=== PATIENT | female | born 1995 | race Caucasian/White ===

== ENCOUNTER 2019-01-08 11:16 | Emergency (ER) | payer SELFPAY ==
[2019-01-08 11:28] VITALS: O2SAT 99
[2019-01-08] MEDS: traMADol HCL 50 MG TAB PO ONE (12:14)
--- NOTE | 2019-01-08 12:17 | RAD ---
EXAM DESCRIPTION: Forearm,Left CLINICAL HISTORY: 23 years Female, pipe fell on the pt. COMPARISON: None available. FINDINGS: The visualized bones are well-mineralized.No acute fracture or dislocation. The soft tissues appear grossly unremarkable. IMPRESSION: Normal radiographs of the left forearm. Electronically signed by: Fawn Lind MD 01/08/2019 12:15 PM CDT
--- NOTE | 2019-01-08 12:17 | RAD ---
EXAM DESCRIPTION: Humerus,Left CLINICAL HISTORY: 23 years Female, pipe fell on the pt. TECHNIQUE: 2 views of the left humerus were performed. FINDINGS: The visualized bones are well-mineralized.No acute fracture or dislocation. The soft tissues appear grossly unremarkable. IMPRESSION: Normal radiographs of the left humerus. Humerus Electronically signed by: Fawn Lind MD 01/08/2019 12:16 PM CDT
--- NOTE | 2019-01-08 12:17 | RAD ---
EXAM DESCRIPTION: Elbow,Left 2 Views CLINICAL HISTORY: 23 years Female, pipe fell on the pt. COMPARISON: None available. FINDINGS: The visualized bones are well-mineralized.No acute fracture or dislocation. The soft tissues appear grossly unremarkable. IMPRESSION: Normal radiographs of the left elbow. Electronically signed by: Fawn Lind MD 01/08/2019 12:15 PM CDT
--- NOTE | 2019-01-08 12:18 | RAD ---
EXAM DESCRIPTION: Shoulder,Left 2 or More Views CLINICAL HISTORY: 23 years Female, pipe fell on the pt. COMPARISON: None available. FINDINGS: The visualized bones are well-mineralized.No acute fracture or dislocation. The soft tissues appear grossly unremarkable. IMPRESSION: Normal radiographs of the left shoulder. Electronically signed by: Fawn Lind MD 01/08/2019 12:16 PM CDT
--- NOTE | 2019-01-08 12:18 | RAD ---
EXAM DESCRIPTION: Wrist,Left 2 Views CLINICAL HISTORY: 23 years Female, pipe fell on the pt. COMPARISON: None available. FINDINGS: The visualized bones are well-mineralized.No acute fracture or dislocation. The soft tissues appear grossly unremarkable. IMPRESSION: Normal radiographs of the left wrist. Electronically signed by: Fawn Lind MD 01/08/2019 12:16 PM CDT
--- NOTE | 2019-01-08 12:37 | ED.PDOC ---
History of Present Illness - General Chief Complaint: Upper Extremity Injury Stated Complaint: left arm pain Time Seen by Provider: 01/08/19 11:20 Source: patient Exam Limitations: no limitations - History of Present Illness Initial Comments: the patient is a 23-year-old female presenting to emergency room secondary to pain in her left upper extremity after several types fell off of the trailer onto her. She is having pain extending down the anterior left shoulder around to the posterior triceps area and then down the forearm to the wrist. There is no gross deformity. There is no laceration. She does have tenderness to palpation in these areas. Passive range of motion appears to be preserved. She appears to be neurovascularly intact. Range of motion strength of the hand appears to be preserved. No other injury. Timing/Duration: momentarily Severity: moderate Improving Factors: immobilization Worsening Factors: movement Associated Symptoms: denies symptoms Allergies/Adverse Reactions: Allergies NO KNOWN ALLERGY Allergy (Verified 01/08/19 11:28) Home Medications: Ambulatory Orders Niacin BID 01/08/19 Review of Systems - Review of Systems Constitutional: States: no symptoms reported EENTM: States: no symptoms reported Respiratory: States: no symptoms reported Cardiology: States: no symptoms reported Gastrointestinal/Abdominal: States: no symptoms reported Genitourinary: States: no symptoms reported Musculoskeletal: States: see HPI Skin: States: no symptoms reported Neurological: States: no symptoms reported Endocrine: States: no symptoms reported All other Systems: No Change from Baseline Past Medical History (General) - Patient Medical History Hx Stroke: No Hx Congestive Heart Failure: No Hx Diabetes: No - Vaccination History Hx Influenza Vaccination: No - Social History Hx Tobacco Use: Yes Hx Substance Use Treatment: Yes - smokes marijuana twice weekly - Female History Patient is a Female of Child Bearing Age (10 -59 yrs old): Yes Family Medical History - Family History Mother Family History: Unknown Living Status: Unknown Physical Exam - Physical Exam General Appearance: Alert, No apparent distress Eye Exam: bilateral normal Ears, Nose, Throat: hearing grossly normal, normal pharynx Neck: full range of motion, supple Respiratory: lungs clear, normal breath sounds, no respiratory distress, no accessory muscle use Cardiovascular/Chest: normal peripheral pulses, regular rate, rhythm, no edema Peripheral Pulses: radial,right: 2+, radial,left: 2+ Gastrointestinal/Abdominal: non tender, soft Rectal Exam: deferred Back Exam: normal inspection, no CVA tenderness, no vertebral tenderness Extremity: normal range of motion, no pedal edema, no calf tenderness, other - see history of present illness. 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 The patient had several pipes roll off of a trailer and hit her in the left upper extremity. X-ray of the left shoulder, humerus, elbow, forearm and wrist show no evidence of any fracture or dislocation. Passive and active range of motion appear to be preserved. She is starting to develop some bruising over the biceps area and increased soreness over the triceps area of the left arm. Muscle/tendon function appears to be intact. No obvious through and through muscle tears. She appears to be neurovascularly intact. The patient should expect to be sore for the next couple of weeks. She can use Motrin for the next few days if needed for pain. She does need to use the extremity carefully for the next few weeks while it is trying to heal. ER warnings were given. [email or web address] [id number] Departure - Departure Clinical Impression: Contusion, arm, upper Qualifiers: Encounter type: initial encounter Laterality: left Qualified Code(s): S40.022A - Contusion of left upper arm, initial encounter Disposition: Discharge to Home or Self Care Condition: Fair Departure Forms: ED Discharge - Pt. Copy, Patient Portal Self Enrollment Instructions: DI for Arm Pain, DI for Elbow Pain, DI for Forearm Muscle Strain Diet: regular diet Activity: increase activity as tolerated Home Medications: Ambulatory Orders Niacin BID 01/08/19 Additional Instructions: the patient's a 23-year-old female presenting to the emergency room secondary to blunt trauma. The patient had several pipes roll off of a trailer and hit her in the left upper extremity. X-ray of the left shoulder, humerus, elbow, forearm and wrist show no evidence of any fracture or dislocation. Pa ssive and active range of motion appear to be preserved. She is starting to develop some bruising over the biceps area and increased soreness over the triceps area of the left arm. Muscle/tendon function appears to be intact. No obvious through and through muscle tears. She appears to be neurovascularly intact. The patient should expect to be sore for the next couple of weeks. She can use Motrin for the next few days if needed for pain. She does need to use the extremity carefully for the next few weeks while it is trying to heal. ER warnings were given.
[2019-01-08] MEDS: KETOROLAC TROMETHAMINE INJ 30 MG/ML VIAL IM ONE (12:47)
[2019-01-08 12:55] VITALS: BP 164/88; TEMP 97.4
== END 2019-01-08 12:57 | disposition home or self-care (01) ==
LOC: ER 11:16
DX: S40.022A Contusion of left upper arm, initial encounter (principal); W20.8XXA Other cause of strike by thrown, projected or falling object, initial encounter; Z87.891 Personal history of nicotine dependence; Y92.9 Unspecified place or not applicable
CPT/HCPCS: 73030; 73060; 73070; 73090; 73100; J1885